=== PATIENT | male | born 1970 | race Caucasian/White ===

== ENCOUNTER 2018-05-30 10:16 | Emergency (ER) | payer OTHER ==
[2018-05-30] MEDS ORDERED: TENECTEPLASE 50 MG KIT (TNKase)(J3101) (10:17)
[2018-05-30] MEDS ORDERED: CLOPIDOGREL 300 MG TAB (PLAVIX) (10:17)
[2018-05-30] MEDS ORDERED: HEPARIN 25,000 UNITS/250 ML D5W BAG (100 UNITS/ML) (10:17)
[2018-05-30] MEDS ORDERED: HEPARIN SOD (PORCINE) 5000 UNITS/ML VIAL (10:17)
[2018-05-30] MEDS: HEPARIN SOD (PORCINE) 5000 UNITS/ML VIAL IV (10:39)
[2018-05-30] MEDS: TENECTEPLASE 50 MG KIT (TNKase)(J3101) IV (10:41)
[2018-05-30] MEDS: HEPARIN DRIP 25,000 UNITS in APPROPRIATE DILUENT 1 EA IV (10:42)
[2018-05-30] MEDS: NS 500 ML IV (10:43)
[2018-05-30] MEDS: CLOPIDOGREL 300 MG TAB (PLAVIX) PO (10:44)
[2018-05-30 11:07] LABS: BASO % 0.3 % (0.0-1.0); EOS % 0.6 % (0.0-3.0); HEMATOCRIT 45.7 % (42.0-52.0); HEMOGLOBIN 15.1 g/dl (13.5-17.5); IMMATURE GRANULOCYTE % 0.1 % (0-3.0); LYMPH # 3.7 10^3/uL (1.5-4.5); LYMPH % 54.5 % (24.0-44.0); MEAN CORPUSCULAR HEMOGLOBIN 29.8 pg (27.0-33.0); MEAN CORPUSCULAR VOLUME 90.3 fl (80.0-96.0); MONO # 0.5 10^3/uL (0.0-0.8); MONO % 7.1 % (0.0-5.0); NEUTROPHILS # 2.6 10^3/uL (1.8-7.7); NEUTROPHILS % 37.4 % (36.0-66.0); PLATELET COUNT, AUTOMATED 211 10^3/uL (150-450); RED BLOOD COUNT 5.06 10^6/uL (4.30-6.10); RED CELL DISTRIBUTION WIDTH 12.3 % (11.5-14.5); WHITE BLOOD COUNT 6.9 10^3/uL (4.0-10.0)
[2018-05-30 11:14] LABS: ANION GAP 4 MEQ/L (8-16); BLOOD UREA NITROGEN 15 MG/DL (7-18); CARBON DIOXIDE LEVEL 29 MEQ/L (21-32); CHLORIDE LEVEL 107 MEQ/L (98-107); CPK CREATINE PHOSPHOKINASE 215 U/L (39-308); CREATININE FOR GFR 1.16 MG/DL (0.70-1.30); GLOMERULAR FILTRATION RATE > 60.0 (>60); GLUCOSE, FASTING 138 MG/DL (70-100); MB/CK RELATIVE INDEX 0.93 (< OR =4); POTASSIUM SERUM 4.3 MEQ/L (3.5-5.1); SODIUM LEVEL 140 MEQ/L (136-145); TROPONIN I < 0.02 NG/ML (< 0.10)
[2018-05-30 11:15] LABS: INR 1.08; PROTHROMBIN TIME 14.2 SECONDS (12.1-14.4)
[2018-05-30 11:16] LABS: PARTIAL THROMBOPLASTIN TIME 34.9 SECONDS (25.4-37.6)
== END 2018-05-30 11:31 | disposition short-term general hospital (02) ==
LOC: M ED 10:16
DX: I21.19 ST elevation (STEMI) myocardial infarction involving other coronary artery of inferior wall (principal); I10 Essential (primary) hypertension
CPT/HCPCS: J3101

== ENCOUNTER → 2018-07-24 | Outpatient (CLI) | payer OTHER ==
[~2018-07-24] MED LIST: ISOVUE-370 76% 100ML VIAL (Q9967) As Ordered ONE
--- NOTE | 2018-07-24 20:58 | REP ---
CT CHEST WITH IV CONTRAST: 07/24/2018. Comparison: AP Portable chest 05/30/2018. Clinical history: Dyspnea. Technique: Bolus of 75 ml Isovue 370 given, scanning through the chest with coronal and sagittal reconstructions. Findings: Lung pena show no pleural effusion, pleural-based mass, calcified pleural plaque or acute infiltrate. There is calcified granuloma lateral basal segment abutting the posterior margin of the major fissure on image 74 in that left lower lobe. This is poorly depicted and not visible on the plain AP chest. I do not see other masses, nodules, acute infiltrate or pneumothorax. There is no pneumomediastinum. The heart is not enlarged. There is no pericardial thickening or effusion. Coronary stent visible anteriorly over the right heart. Some atherosclerotic calcifications are also noted in the coronaries. There is no cardiomegaly, specific chamber enlargement, pericardial thickening or effusion. The aorta is without aneurysm or dissection. The main, right and left pulmonary arteries and the mediastinum are without filling defects. No pathologic sized mediastinal, hilar, axillary or supraclavicular adenopathy. The bone windows show the sternum, manubrium, medial clavicles, small portions of the humeral heads, scapulae, ribs and thoracic spine all grossly intact. Upper abdomen shows that portion of liver and spleen included to be intact. Gallbladder contracted with the stomach filled with food. Adrenal glands are normal. There is no hiatal hernia. Upper poles kidneys intact. Abdominal aorta is grossly intact. Small bowel loops and colon visible in the upper abdomen unremarkable. Impression: 1. There is evidence of old granulomatous disease with a calcified granuloma lateral basal segment left lower lobe. 2. No infiltrate, effusion, calcified pleural plaque, parenchymal mass or other nodules. 3. Heart, mediastinal contours, aorta and central pulmonary arteries grossly intact. Bones unremarkable. Nothing in the visualized upper abdomen. Electronically Signed by Rob Marinelli MD 07/25/2018 01:18 P
== END ==
LOC: M RAD 16:54
PROVIDERS: ATTEND Internal Medicine Pulmonary Disease
DX: R91.8 Other nonspecific abnormal finding of lung field (principal); R06.09 Other forms of dyspnea
CPT/HCPCS: 71260; Q9967

== ENCOUNTER → 2018-07-28 | Outpatient (CLI) | payer OTHER ==
[~2018-07-28] MED LIST changes: +APAP325T4 PO; +ASPI81TA85 PO; +ATOR80TA59 PO; +BRIL90TA PO; +CENTCHW4 PO; -ISOVUE-370 76% 100ML VIAL (Q9967) As Ordered ONE; +LISI2.5T5 PO; +METHACHOLINE KIT (J7674) INH ONE; +METO37.5 PO; +MONT10TA2 PO; +NITR0.4S14 SL; +QUET1TAB7 PO
[2018-07-28 13:04] LABS: ABG BASE EXCESS -0.3 (-2.0-2.0); ABG HCO3 23.7 MEQ/L (22.0-26.0); ABG PARTIAL PRESSURE CO2 36.9 mmHg (35.0-45.0); ABG STANDARD HCO3 24.3 MEQ/L (22.0-26.0); ABG TOTAL CO2 24.8 MEQ/L (22.0-29.0); ABG pH (ARTERIAL) 7.425 UNITS (7.350-7.450)
--- NOTE | 2018-07-28 13:24 | PFTRPT ---
Height: 73.50 Inches Weight: 243.00 Lbs BSA: 2.35 Diagnosis: R06.00 DATE OF PROCEDURE: 07/28/2018 ORDERED BY: Dr. Vu Spirometry: Study of excellent technical quality. Forced vital capacity normal. FEV1 in proportion. Obstructive index is, therefore, normal. Flow Volume Loop: Expiratory limb of the flow volume loop is normal. Lung Volumes: Total lung capacity normal. Residual volume is borderline out of proportion. Diffusing Capacity: Diffusing capacity normal. Hemoglobin: Hemoglobin acceptable at 16.4. Airway Mechanics: Airway resistance and conductance are normal. IMPRESSION: Probably normal study. MTDD
--- NOTE | 2018-07-28 14:26 | PFTRPT ---
Height: 73.50 Inches Weight: 243.00 Lbs BSA: 2.35 Diagnosis: R06.00 DATE OF PROCEDURE: 07/28/2018 ORDERING PROVIDER: Dr. Vu INTERPRETATION: Study is of excellent technical quality. Under protocol, methacholine was administered. Even after a maximal dose of 25 mg or 188.875 CDUs, no provocation dose ever achieved. IMPRESSION: Negative methacholine challenge study. MTDD
== END ==
LOC: M CARPUL 12:26
PROVIDERS: ATTEND Internal Medicine Pulmonary Disease
DX: R06.00 Dyspnea, unspecified (principal)
CPT/HCPCS: 36415; 82803; 85018; 94010; 94070; 94726; 94729; J7674

== ENCOUNTER 2018-08-03 11:23 | Outpatient (RCR) | payer OTHER ==
[2018-08-03] MEDS ORDERED: QUET1TAB7 PO (13:28)
[2018-08-03] MEDS ORDERED: LISI2.5T5 PO (13:28)
[2018-08-03] MEDS ORDERED: NITR0.4S14 SL (13:28)
[2018-08-03] MEDS ORDERED: APAP325T4 PO (13:28)
[2018-08-03] MEDS ORDERED: MONT10TA2 PO (13:28)
[2018-08-03] MEDS ORDERED: CENTCHW4 PO (13:28)
[2018-08-03] MEDS ORDERED: ATOR80TA59 PO (13:28)
[2018-08-03] MEDS ORDERED: ASPI81TA85 PO (13:28)
[2018-08-03] MEDS ORDERED: METO37.5 PO (13:28)
[2018-08-03] MEDS ORDERED: BRIL90TA PO (13:28)
--- NOTE | 2018-08-03 14:28 | CARECAPL ---
Assessment Account #s: Initial Assessment General Diagnoses: Stent, NSTEMI Date of event: May 30, 2018 Physician: Mert Waldrop P Allergies: Coded Allergies: No Known Allergies (Unverified , 05/30/18) Date Entered Program: Aug 03, 2018 Risk strat for cardiac event: Low Exercise Date: Aug 03, 2018 Assessment: Initial Assessment Exercise Prescription Plan educate and increase endurance through exercise Modalities initiated: Treadmill (mets 2.15 RPE 3), Nustep (mets 2.6 RPE 2), Arm Aerometer (mets 1.6 RPE 2), Dumbells (will add), Recumbent Bike (will add) Frequency: 3 Duration (Minutes) 30-60 minutes total exercise a day. 15-20 work intervals in minutes. prn rest intervals in minutes. Functional Capacity Goal Sustained Metabolic Equivalent of a task (MET) goal of 4.0-4.5 for 15-20 minutes. Intensity: 3-Moderate Progression (METS) Increase by: 0.5 METS every: 3-5 sessions Angina with ex: No Target Heart Rate rest + 35-40 per beta ivonne therapy Resistance Training: Yes Weight (pounds): 1 Reps: 8-12 Hypertension: No Hypertension controlled with: Medication (metoprolol and lisinopril) Resting rest + 35-40 Peak Exercise BP 160/90 Meds metoprolol and lisinopril Medications Scheduled Aspirin (Aspir-81), 1 TAB PO DAILY, (Reported) Atorvastatin Calcium (Atorvastatin Calcium), 1 TAB PO DAILY, (Reported) Lisinopril (Lisinopril), 2.5 MG PO DAILY, (Reported) Metoprolol Tartrate (Metoprolol Tartrate), 12.5 MG PO BID, (Reported) Montelukast Sodium (Montelukast Sodium), 1 TAB PO DAILY, (Reported) Multivitamins (Centrum), 1 TAB PO DAILY, (Reported) Nitroglycerin (Nitroglycerin), 1 TAB SL ASDIRECTED, (Reported) Quetiapine Fumerate (Quetiapine Fumarate), 1 TAB PO QPM, (Reported) Ticagrelor Base (Brilinta), 90 MG PO BID, (Reported) Scheduled PRN Acetaminophen (Apap), 650 MG PO Q4-6HP PRN for pain or fever, (Reported) Target Goals Individual exercise Rx (1) BP 140/90 or 130/80 if DM or CKD (1) Aerobic active 30+min 5 days per week (1) Nutrition Date: Aug 03, 2018 Assessment: Initial Assessment Lipid- med/supplement lipitor Diabetes Diabetes: No Monitor Blood Sugar at home: No Weight Management Weight (lbs): 247.6 Height (inches): 74 Waist Circumference (Inches): 42 BMI: 31.71 Weight goal: 215 Special Diet: low salt, low-fat Vitamin/Supplements: Multivitamin Alcohol: special Alcohol Type: beer Alcohol Amount: 1-2 Diet Access Tool: Rate your plate Score: 42 Referral to Diabetes education: No Referral to lipid clinic: No Referral to weight mangement p: No Target goal LDL-C<100 if triglycerides are >200 Non-HDL-C should be <130 (1) LDL-C<70 for high risk patients (4) HbA1c<7% (1) BMI<25 Waist cir<40in M/<35in F (1) Education Date: Aug 03, 2018 Assessment: Initial Assessment Knowledge Test Score: 10 Family Support: Yes Tobacco use: No Quit: never smoked Intervention Education: CAD, Risk factors, med compliance, cardiac A&P, Angina S/S, Sexuality Target Goals Complete cessation of tobacco use (1). Psychosocial Date: Aug 03, 2018 Assessment: Initial Assessment Psych Test (Initial/Discharge) Tool Used: CESD Score: 40 Psychotropic medication seroquel for PTSD Education Education: Coping Techniques, S/S depression, Relaxation Techniques Target Goal Assess presence or absence of depression using a valid screening tool (1). Maximize coping skills (2). Positive support system (2). Patient/Program Goal Preventative Medication: Yes Aspirin, Yes Beta blockade, Yes RIANA Inhibitor, Yes Statin/OTR lipid Lowering, Yes Other (brillinta) Fall Risk Assess: No Provider Assessment Session Number: 1 Provider Assessment: Proceed with rehab Jodi Menjivar RN Aug 03, 2018 14:28
== END 2018-08-06 ==
LOC: M CR 11:23
PROVIDERS: ATTEND Internal Medicine Interventional Cardiology
DX: I21.4 Non-ST elevation (NSTEMI) myocardial infarction (principal)

== ENCOUNTER → 2018-08-05 | Outpatient (CLI) | payer OTHER ==
[~2018-08-05] MED LIST changes: -METHACHOLINE KIT (J7674) INH ONE
--- NOTE | 2018-08-08 08:32 | SLEEPCENT ---
DATE OF PROCEDURE: 08/05/2018 INTERPRETATION: Titration of polysomnography was done for determination of pressure therapy in this patient with moderate obstructive sleep apnea with an apnea/hypopneic index (AHI) of 21.9 who had ongoing sleep apnea syndrome symptoms consisting of snoring, witnessed apnea, gagging respirations, morning headaches, excessive daytime sleepiness, and non-refreshing sleep. He had been started on CPAP at 6 cm of water pressure while in [place]. On returning to the [facility], his machine was not compatible with our electrical system and he has been untreated since his return. A total of 8 hours and 36 minutes of data was reviewed for the entire titration with 345 minutes of sleep identified. Sleep latency was 23.5 minutes and N3 latency was 114.9 minutes. No rapid eye movement (REM) sleep was identified. Sleep efficiency was decreased at 66.8%. EKG showed sinus bradycardia with an average heart rate of 58 beats per minute. No epileptiform discharge observed. The patient had been fit with a Lujan-Paykel Simplus full-face mask of small size, 6 cm of water pressure was applied to the circuit and the lights were dimmed. CPAP started at 6 cm of water pressure was taken to a high of 8 cm of water pressure, which appeared optimum although the study was limited as no supine nor REM sleep was observed. On this pressure, his apnea/hypopneic index (AHI) was 0, his respiratory arousal index (HERRERA) was 2.8. Oxygen saturation genesis was in the 90 percentile. No significant periodic limb movements. IMPRESSION: Obstructive sleep apnea, moderate, reasonably palliated on CPAP at 8 cm of water pressure in a study limited by no supine sleep and no REM sleep being observed. RECOMMENDATION: Recommend the patient continued with CPAP therapy at the above pressure via a small Lujan-Paykel Simplus full-face mask or mask of his preference. Clinical correlation will be necessary to ensure eradication of symptoms. [facility]
== END ==
LOC: M SLEEP 19:40
PROVIDERS: ATTEND Internal Medicine Pulmonary Disease
DX: G47.33 Obstructive sleep apnea (adult) (pediatric) (principal)

== ENCOUNTER 2018-08-31 09:51 | Outpatient (RCR) | payer OTHER ==
--- NOTE | 2018-08-26 08:41 | CARECAPL ---
Assessment Account #s: Re-Assessment I General Diagnoses: Stent, NSTEMI Date of event: May 30, 2018 Physician: Mert Waldrop P Allergies: Coded Allergies: No Known Allergies (Unverified , 05/30/18) Date Entered Program: Aug 03, 2018 Risk strat for cardiac event: Low Exercise Date: Aug 10, 2018 Assessment: Re-Assessment I Exercise Prescription Modalities initiated: Treadmill (mets 2.69 RPE 2.5), Nustep (mets 2.6 RPE 2.5), Arm Aerometer (mets 2.4 RPE 2), Dumbells (1lb RPE 3), Recumbent Bike (mets 3.2 RPE 2.5) Frequency: 2-3 Duration (Minutes) minutes total exercise a day. work intervals in minutes. rest intervals in minutes. Functional Capacity Goal Sustained Metabolic Equivalent of a task (MET) goal of for minutes. Intensity: 3-Moderate Progression (METS) Increase by: METS every: sessions Medications Scheduled Aspirin (Aspir-81), 1 TAB PO DAILY, (Reported) Atorvastatin Calcium (Atorvastatin Calcium), 1 TAB PO DAILY, (Reported) Lisinopril (Lisinopril), 2.5 MG PO DAILY, (Reported) Metoprolol Tartrate (Metoprolol Tartrate), 12.5 MG PO BID, (Reported) Montelukast Sodium (Montelukast Sodium), 1 TAB PO DAILY, (Reported) Multivitamins (Centrum), 1 TAB PO DAILY, (Reported) Nitroglycerin (Nitroglycerin), 1 TAB SL ASDIRECTED, (Reported) Quetiapine Fumerate (Quetiapine Fumarate), 1 TAB PO QPM, (Reported) Ticagrelor Base (Brilinta), 90 MG PO BID, (Reported) Scheduled PRN Acetaminophen (Apap), 650 MG PO Q4-6HP PRN for pain or fever, (Reported) Current BP 118/84 Med Change: No Target Goals Individual exercise Rx (1) BP 140/90 or 130/80 if DM or CKD (1) Aerobic active 30+min 5 days per week (1) Nutrition Date: Aug 26, 2018 Assessment: Re-Assessment I Med Change: No Medication Change: No Current Weight (pounds): 245 Target goal LDL-C<100 if triglycerides are >200 Non-HDL-C should be <130 (1) LDL-C<70 for high risk patients (4) HbA1c<7% (1) BMI<25 Waist cir<40in M/<35in F (1) Education Date: Aug 26, 2018 Assessment: Re-Assessment I Learning Barriers: ready Target Goals Complete cessation of tobacco use (1). Psychosocial Date: Aug 26, 2018 Assessment: Re-Assessment I Med Change: No Education Education: Coping Techniques, S/S depression, Relaxation Techniques Target Goal Assess presence or absence of depression using a valid screening tool (1). Maximize coping skills (2). Positive support system (2). Patient/Program Goal Preventative Medication: Yes Aspirin, Yes Beta blockade, Yes RIANA Inhibitor, Yes Statin/OTR lipid Lowering Fall Risk Assess: No Provider Assessment Session Number: 2 Provider Assessment: Proceed with rehab Jdoi Menjivar RN Aug 26, 2018 08:41
== END 2018-09-03 ==
LOC: M CR 09:51
PROVIDERS: ATTEND Internal Medicine Interventional Cardiology
DX: I21.4 Non-ST elevation (NSTEMI) myocardial infarction (principal)

== ENCOUNTER 2018-09-23 14:06 | Outpatient (RCR) | payer OTHER ==
--- NOTE | 2018-09-23 11:02 | CARECAPL ---
Assessment Account #s: Re-Assessment II General Diagnoses: Stent, NSTEMI Date of event: May 30, 2018 Physician: Mert Waldrop P Allergies: Coded Allergies: No Known Allergies (Unverified , 05/30/18) Date Entered Program: Aug 03, 2018 Risk strat for cardiac event: Low Exercise Date: Sep 23, 2018 Exercise Prescription Modalities initiated: Treadmill, Nustep, Arm Aerometer, Dumbells, Recumbent Bike Frequency: 2 Duration (Minutes) minutes total exercise a day. work intervals in minutes. rest intervals in minutes. Functional Capacity Goal Sustained Metabolic Equivalent of a task (MET) goal of for minutes. Intensity: 2-Slight Progression (METS) Increase by: METS every: sessions Angina with ex: No Resistance Training: Yes Weight (pounds): 6 Reps: 6-8 Medications Scheduled Aspirin (Aspir-81), 1 TAB PO DAILY, (Reported) Atorvastatin Calcium (Atorvastatin Calcium), 1 TAB PO DAILY, (Reported) Lisinopril (Lisinopril), 2.5 MG PO DAILY, (Reported) Metoprolol Tartrate (Metoprolol Tartrate), 12.5 MG PO BID, (Reported) Montelukast Sodium (Montelukast Sodium), 1 TAB PO DAILY, (Reported) Multivitamins (Centrum), 1 TAB PO DAILY, (Reported) Nitroglycerin (Nitroglycerin), 1 TAB SL ASDIRECTED, (Reported) Quetiapine Fumerate (Quetiapine Fumarate), 1 TAB PO QPM, (Reported) Ticagrelor Base (Brilinta), 90 MG PO BID, (Reported) Scheduled PRN Acetaminophen (Apap), 650 MG PO Q4-6HP PRN for pain or fever, (Reported) Current BP 144/74 Med Change: Yes Target Goals Individual exercise Rx (1) BP 140/90 or 130/80 if DM or CKD (1) Aerobic active 30+min 5 days per week (1) Nutrition Date: Sep 23, 2018 Assessment: Re-Assessment II Diabetes Diabetes: No Medication Change: No Current Weight (pounds): 242 Intervention Nurse/patient discussion: Yes Education Eating Healthy Target goal LDL-C<100 if triglycerides are >200 Non-HDL-C should be <130 (1) LDL-C<70 for high risk patients (4) HbA1c<7% (1) BMI<25 Waist cir<40in M/<35in F (1) Education Date: Sep 23, 2018 Assessment: Re-Assessment II Intervention Attended education classes: Yes Education: CAD, Risk factors, med compliance, cardiac A&P, Angina S/S, Sexuality Target Goals Complete cessation of tobacco use (1). Psychosocial Date: Sep 23, 2018 Assessment: Re-Assessment II Stress Management Class: Yes Uses Stress Management Skills: Yes Education Education: Coping Techniques, S/S depression, Relaxation Techniques Target Goal Assess presence or absence of depression using a valid screening tool (1). Maximize coping skills (2). Positive support system (2). Provider Assessment Session Number: 7 Provider Assessment: No changes Madyson Ramos RN Sep 23, 2018 11:02
== END 2018-10-04 ==
LOC: M CR 14:06
PROVIDERS: ATTEND Internal Medicine Interventional Cardiology
DX: I21.4 Non-ST elevation (NSTEMI) myocardial infarction (principal)

== ENCOUNTER 2018-10-21 14:40 | Outpatient (RCR) | payer OTHER ==
--- NOTE | 2018-10-21 09:11 | CARECAPL ---
Assessment Account #s: Re-Assessment II (REASSESSMENT III) General Diagnoses: Stent, NSTEMI Date of event: May 30, 2018 Physician: Mert Waldrop P Allergies: Coded Allergies: No Known Allergies (Unverified , 05/30/18) Date Entered Program: Aug 03, 2018 Risk strat for cardiac event: Low Exercise Date: Oct 21, 2018 Assessment: Re-Assessment II (REASSESSMENT III) Exercise Prescription Plan TO EDUCATE AND BUILD ENDURANCE THROUGH MONITORED EXERCISE Modalities initiated: Treadmill (METS=4.12/RPE=2), Nustep (METS=3.2/RPE=3), Arm Aerometer (METS=5.8/RRPE=3), Dumbells (8#/RPE=2.5), Recumbent Bike (METS=4.3/RPE=3) Frequency: 3 Duration (Minutes) 30-60 minutes total exercise a day. 12-15 work intervals in minutes. 5 MIN PRN rest intervals in minutes. Functional Capacity Goal Sustained Metabolic Equivalent of a task (MET) goal of 4.0-4.5 for 15-20 minutes. Intensity: 3-Moderate Progression (METS) Increase by: 0.5 METS every: 5 sessions TOLERATED Angina with ex: No Target Heart Rate +35-40 BETA NASREEN THERAPY Resistance Training: Yes Weight (pounds): 8 Reps: 12-15 Hypertension: Yes Hypertension controlled with: Medication Resting 142/90 Peak Exercise BP 160/100 Medications Scheduled Aspirin (Aspir 81), 1 TAB PO DAILY, (Reported) Atorvastatin Calcium (Atorvastatin Calcium), 1 TAB PO DAILY, (Reported) Lisinopril (Lisinopril), 2.5 MG PO DAILY, (Reported) Metoprolol Tartrate (Metoprolol Tartrate), 12.5 MG PO BID, (Reported) Montelukast Sodium (Montelukast Sodium), 1 TAB PO DAILY, (Reported) Multivit-Min/Iron/Folic/Vit K1 (Centrum Chewables Adults Tab), 1 TAB PO DAILY, (Reported) Nitroglycerin (Nitroglycerin), 1 TAB SL ASDIRECTED, (Reported) Quetiapine Fumarate (Quetiapine Fumarate), 1 TAB PO QPM, (Reported) Ticagrelor Base (Brilinta), 90 MG PO BID, (Reported) Scheduled PRN Acetaminophen (Acetaminophen), 650 MG PO Q4-6HP PRN for pain or fever, (Re ported) Current BP 120/80 Med Change: No Intervention Home exercise: Type (WALKING,STATIONARY BIKE,HAND WEIGHTS), Frequency (3-5 TIMES PER WEEK), Duration (30-60 MINUTES) Resistance Training: Yes Education: Self pulse, Ex safety, S/S to report, Low NA diet, BP medication, RPE Scale, Equipment orientation, warm up/cool down, Understand BP, Physical Active Target Goals Individual exercise Rx (1) BP 140/90 or 130/80 if DM or CKD (1) Aerobic active 30+min 5 days per week (1) Nutrition Date: Oct 21, 2018 Assessment: Re-Assessment II (REASSESSMENT III) Lipid- med/supplement ATORVASTATIN Med Change: No Diabetes Diabetes: No Medication Change: No Weight Management Weight (lbs): 239.8 Special Diet: low salt, low-fat Vitamin/Supplements: Vitamin D Current Weight (pounds): 239.8 Intervention [employer] Commanding Officer Consult: No Nurse/patient discussion: Yes Referral to Diabetes education: No Referral to lipid clinic: No Referral to weight mangement p: No Education Eating Healthy Target goal LDL-C<100 if triglycerides are >200 Non-HDL-C should be <130 (1) LDL-C<70 for high risk patients (4) HbA1c<7% (1) BMI<25 Waist cir<40in M/<35in F (1) Education Date: Oct 21, 2018 Assessment: Re-Assessment II (REASSESSMENT III) Learning Barriers: ready Family Support: Yes Tobacco use: No Tobacco Use Smokeless tobacco: No Intervention Referral to smoking cessation: No Individual education and couns: No Tobacco Adjunct: No Education class schedule given: No Attended education classes: No Education: CAD, Risk factors, med compliance, cardiac A&P, Angina S/S, Sexuali ty Target Goals Complete cessation of tobacco use (1). Psychosocial Date: Oct 21, 2018 Assessment: Re-Assessment II (REASSESSMENT III) Intervention Physician Consult: No Physician Referral: No Med Change: No Stress Management Class: No Uses Stress Management Skills: Yes Education Education: Coping Techniques, S/S depression, Relaxation Techniques Target Goal Assess presence or absence of depression using a valid screening tool (1). Maximize coping skills (2). Positive support system (2). Patient/Program Goal Preventative Medication: Yes Aspirin, Yes Beta blockade, Yes Statin/OTR lipid Lowering Fall Risk Assess: Yes (NOT A FALL RISK) Provider Assessment Session Number: 10 Provider Assessment: Proceed with rehab Shahab Ruiz RN Oct 21, 2018 09:11
[~2018-10-21 14:40] MED LIST changes: +LISI-1046 PO; -LISI2.5T5 PO
== END 2018-11-03 ==
LOC: M CR 14:40
PROVIDERS: ATTEND Internal Medicine Interventional Cardiology
DX: I21.4 Non-ST elevation (NSTEMI) myocardial infarction (principal)

== ENCOUNTER 2018-11-11 09:36 | Outpatient (RCR) | payer OTHER ==
--- NOTE | 2018-11-16 11:28 | CARECAPL ---
Assessment Account #s: Re-Assessment II (reassessment IV) General Diagnoses: Stent, NSTEMI Date of event: May 30, 2018 Allergies: Coded Allergies: No Known Allergies (Unverified , 05/30/18) Date Entered Program: Jul 30, 2018 Risk strat for cardiac event: Low Exercise Date: November 16, 2018 Assessment: Re-Assessment II (reassessment IV) Exercise Prescription Plan to educate about cardiac disease and risk factors and to provide a monitored exercise program to build endurance and strength Modalities initiated: Treadmill (3.0/3.0 mts 4.54 rpe 2 15 minutes), Nustep (L7 MTS 6.6 RPE 4.5 15 minutes), Arm Aerometer (6.0 Mts 5.66 Rpe 2.5 10 minutes), Dumbells, Recumbent Bike (R5 mts 4.0 rpe 3 10 minutes) Frequency: 2 Duration (Minutes) 30-60 minutes total exercise a day. 8-15 work intervals in minutes. as needed rest intervals in minutes. Functional Capacity Goal Sustained Metabolic Equivalent of a task (MET) goal of for minutes. Intensity: 4-Quite a bit Progression (METS) Increase by: .5 METS every: 2-3 sessions Angina with ex: No Target Heart Rate r+35-40 betablocker therapy Resistance Training: Yes Weight (pounds): 8 Reps: 8-12 Medications Scheduled Aspirin (Aspir 81), 1 TAB PO DAILY, (Reported) Atorvastatin Calcium (Atorvastatin Calcium), 1 TAB PO DAILY, (Reported) Lisinopril (Lisinopril), 2.5 MG PO DAILY, (Reported) Metoprolol Tartrate (Metoprolol Tartrate), 12.5 MG PO BID, (Reported) Montelukast Sodium (Montelukast Sodium), 1 TAB PO DAILY, (Reported) Multivit-Min/Iron/Folic/Vit K1 (Centrum Chewables Adults Tab), 1 TAB PO DAILY, (Reported) Nitroglycerin (Nitroglycerin), 1 TAB SL ASDIRECTED, (Reported) Quetiapine Fumarate (Quetiapine Fumarate), 1 TAB PO QPM, (Reported) Ticagrelor Base (Brilinta), 90 MG PO BID, (Reported) Scheduled PRN Acetaminophen (Acetaminophen), 650 MG PO Q4-6HP PRN for pain or fever, (Reported) Current BP 118/80 Med Change: No Intervention Home exercise: Type (walking, hand weights, stationary bike, join gym) Resistance Training: Yes Education: Self pulse, Ex safety, S/S to report, Low NA diet, BP medication, RPE Scale, Equipment orientation, warm up/cool down, Understand BP, Physical Active Education Goals Met: No (progressing) Target Goals Individual exercise Rx (1) BP 140/90 or 130/80 if DM or CKD (1) Aerobic active 30+min 5 days per week (1) Nutrition Date: November 16, 2018 Assessment: Re-Assessment II (reassessment IV) Med Change: No Diabetes Diabetes: No Current Weight (pounds): 239.8 Intervention Network Analyst Consult: Yes Nurse/patient discussion: Yes Dietary Goals better choices and smaller portions Diet Class: Yes Referral to Diabetes education: No Referral to lipid clinic: No Referral to weight mangement p: No Education Eating Healthy Education Goals Met: No (progressing) Target goal LDL-C<100 if triglycerides are >200 Non-HDL-C should be <130 (1) LDL-C<70 for high risk patients (4) HbA1c<7% (1) BMI<25 Waist cir<40in M/<35in F (1) Education Date: November 16, 2018 Assessment: Re-Assessment II (reassessment IV) Tobacco use: No Tobacco Use Smokeless tobacco: No Intervention Referral to smoking cessation: No Individual education and couns: No Tobacco Adjunct: No Education class schedule given: Yes Attended education classes: Yes Education: CAD, Risk factors, med compliance, cardiac A&P, Angina S/S, Sexuality Education Goals Met: No (continue to progress) Target Goals Complete cessation of tobacco use (1). Psychosocial Date: November 16, 2018 Assessment: Re-Assessment II (reassessment IV) Stress Management Class: Yes Uses Stress Management Skills: Yes Education Education: Coping Techniques, S/S depression, Relaxation Techniques, Other (has PTSD will be attending a program in the near future) Education Goals Met: No (progressing) Target Goal Assess presence or absence of depression using a valid screening tool (1). Maximize coping skills (2). Positive support system (2). Provider Assessment Session Number: 14 Provider Assessment: No changes Madyson Ramos RN November 16, 2018 11:28
== END 2018-12-04 ==
LOC: M CR 09:36
PROVIDERS: ATTEND Internal Medicine Interventional Cardiology
DX: Z51.89 Encounter for other specified aftercare (principal)

== ENCOUNTER → 2019-02-03 | Outpatient (RCR) | payer OTHER ==
--- NOTE | 2019-01-14 16:24 | CARECAPL ---
Assessment Account #s: Re-Assessment II (REASSESSMENT ) General Diagnoses: Stent, NSTEMI Date of event: May 30, 2018 Physician: Rafael Espinal Allergies: Coded Allergies: No Known Allergies (Unverified , 05/30/18) Date Entered Program: Jul 30, 2018 Risk strat for cardiac event: Low Exercise Date: Jan 14, 2019 (PATIENT ATTENDING TRAINING FOR [employer], PLANS TO RETURN WHEN FINISHED) Assessment: Re-Assessment II (REASSESSMENT ) Exercise Prescription Plan TO EDUCATE AND BUILD ENDURANCE THROUGH MONITORED EXERCISE Modalities initiated: Treadmill (METS=4.54/RPE=2), Nustep (METS=6.6/RPE=4.5), Arm Aerometer (METS=5.66/RPE=2.5), Dumbells (8#/RPE=1.5), Recumbent Bike (METS=4.0/RPE=3) Frequency: 3 Duration (Minutes) 30-60 minutes total exercise a day. 12-15 work intervals in minutes. 5 MIN rest intervals in minutes. Functional Capacity Goal Sustained Metabolic Equivalent of a task (MET) goal of 4.75-6.0 for 15-20 minutes. Intensity: 3-Moderate Progression (METS) Increase by: METS every: sessions Angina with ex: No Target Heart Rate REST +35-40 Resistance Training: Yes Weight (pounds): 8 Reps: 12-15 Hypertension: Yes Hypertension controlled with: Medication Resting 118/80 Peak Exercise BP 140/80 Medications Scheduled Aspirin (Aspir 81), 1 TAB PO DAILY, (Reported) Atorvastatin Calcium (Atorvastatin Calcium), 1 TAB PO DAILY, (Reported) Lisinopril (Lisinopril), 2.5 MG PO DAILY, (Reported) Metoprolol Tartrate (Metoprolol Tartrate), 12.5 MG PO BID, (Reported) Montelukast Sodium (Montelukast Sodium), 1 TAB PO DAILY, (Reported) Multivit-Min/Iron/Folic/Vit K1 (Centrum Chewables Adults Tab), 1 TAB PO DAILY, (Reported) Nitroglycerin (Nitroglycerin), 1 TAB SL ASDIRECTED, (Reported) Quetiapine Fumarate (Quetiapine Fumarate), 1 TAB PO QPM, (Reported) Ticagrelor Base (Brilinta), 90 MG PO BID, (Reported) Scheduled PRN Acetaminophen (Acetaminophen), 650 MG PO Q4-6HP PRN for pain or fever, (Reported) Current BP 118/82 Med Change: No Intervention Resistance Training: Yes Education: Self pulse, Ex safety, S/S to report, Low NA diet, BP medication, RPE Scale, Equipment orientation, warm up/cool down, Understand BP, Physical Active Target Goals Individual exercise Rx (1) BP 140/90 or 130/80 if DM or CKD (1) Aerobic active 30+min 5 days per week (1) Nutrition Date: Jan 14, 2019 Assessment: Re-Assessment II (REASSESSMENT ) Lipid- med/supplement ATORVASTATIN Med Change: No Diabetes Diabetes: No Monitor Blood Sugar at home: No Medication Change: No Blood sugar in range: No Weight Management Weight (lbs): 239.8 Special Diet: low salt, low-fat Vitamin/Supplements: Multivitamin Current Weight (pounds): 239.8 Intervention Pulp Plant Supervisor Consult: No Nurse/patient discussion: Yes Dietary Goals TO MAKE HEART HEALTHY CHOICES Diet Class: Yes (WILL SEE ORTHOPEDICALLY IMPAIRED TEACHER WHILE IN PROGRAM) Referral to Diabetes education: No Referral to lipid clinic: No Referral to weight mangement p: No Education Eating Healthy Target goal LDL-C<100 if triglycerides are >200 Non-HDL-C should be <130 (1) LDL-C<70 for high risk patients (4) HbA1c<7% (1) BMI<25 Waist cir<40in M/<35in F (1) Education Date: Jan 14, 2019 Assessment: Re-Assessment II (REASSESSMENT ) Learning Barriers: ready Family Support: Yes Tobacco use: No Tobacco Use Smokeless tobacco: No Intervention Referral to smoking cessation: No Individual education and couns: No Tobacco Adjunct: No Education class schedule given: No Attended education classes: No Education: tobacco triggers, CAD, Risk factors, med compliance, cardiac A&P, Angina S/S, Sexuality Target Goals Complete cessation of tobacco use (1). Psychosocial Date: Jan 14, 2019 Assessment: Re-Assessment II (REASSESSMENT ) Intervention Physician Consult: No Physician Referral: No Med Change: No Stress Management Class: No Uses Stress Management Skills: Yes Education Education: Coping Techniques, S/S depression, Relaxation Techniques Target Goal Assess presence or absence of depression using a valid screening tool (1). Maximize coping skills (2). Positive support system (2). Patient/Program Goal Preventative Medication: Yes Aspirin, Yes Beta blockade, Yes Statin/OTR lipid Lowering Fall Risk Assess: Yes (NOT A FALL RISK) Provider Assessment Session Number: 14 Provider Assessment: Proceed with rehab (PATIENT IS ATTENDING MANDATORY TRAINING FOR PTSD, PLANS TO RETURN ONCE COMPLETED) Shahab Ruiz RN Jan 14, 2019 16:24
[~2019-02-03] MED LIST changes: +LOSA100T50 PO; +OMEP-218 PO; +PRAZ2CAP PO; +WELLTAB38 PO
== END ==
LOC: M CR 01-25 12:38
PROVIDERS: ATTEND Internal Medicine Interventional Cardiology
DX: I21.4 Non-ST elevation (NSTEMI) myocardial infarction (principal)

== ENCOUNTER 2019-03-03 11:17 | Outpatient (RCR) | payer OTHER ==
--- NOTE | 2019-02-10 10:04 | CARECAPL ---
Assessment Account #s: Re-Assessment II (VII) General Diagnoses: Stent, NSTEMI Date of event: May 30, 2018 Physician: Rafael Espinal Allergies: Coded Allergies: No Known Allergies (Unverified , 05/30/18) Date Entered Program: Jul 30, 2018 Risk strat for cardiac event: Low Exercise Date: Feb 10, 2019 Assessment: Re-Assessment II (VII) Exercise Prescription Modalities initiated: Treadmill (2.7/1.5 mts 3.44 rpe 2 10 minutes), Nustep (level 6 mts 3.8 rpe 2 15 minutes), Arm Aerometer (level 2.5 mts 2.8 rpe 3), Dumbells, Recumbent Bike (level mts 3.2 rpe 3.5 10 minutes) Frequency: 2-3 Duration (Minutes) minutes total exercise a day. work intervals in minutes. rest intervals in minutes. Functional Capacity Goal Sustained Metabolic Equivalent of a task (MET) goal of 5-6.0 for 15-20 minutes. Progression (METS) Increase by: METS every: sessions Resistance Training: Yes Weight (pounds): 4 Reps: 8-12 Medications Scheduled Aspirin (Aspir 81), 1 TAB PO DAILY, (Reported) Atorvastatin Calcium (Atorvastatin Calcium), 1 TAB PO DAILY, (Reported) Bupropion HCl (Wellbutrin Xl), 150 MG PO QAM, (Reported) Losartan Potassium (Losartan Potassium), 100 MG PO DAILY, (Reported) Metoprolol Tartrate (Metoprolol Tartrate), 12.5 MG PO BID, (Reported) Montelukast Sodium (Montelukast Sodium), 1 TAB PO DAILY, (Reported) Multivit-Min/Iron/Folic/Vit K1 (Centrum Chewables Adults Tab), 1 TAB PO DAILY, (Reported) Nitroglycerin (Nitroglycerin), 1 TAB SL ASDIRECTED, (Reported) Omeprazole (Omeprazole), 20 MG PO DAILY, (Reported) Prazosin Hcl (Prazosin HCl), 1 CAP PO QHS, (Reported) Ticagrelor Base (Brilinta), 90 MG PO BID, (Reported) Scheduled PRN Acetaminophen (Acetaminophen), 650 MG PO Q4-6HP PRN for pain or fever, (Reported) Current BP 128/76 Med Change: No Intervention Home exercise: Type (walking, join local gym, hand weights), Frequency (5-7 times a week), Duration (30-60 minutes) Resistance Training: Yes Education: Self pulse (locations of pulse, how to time it), Ex safety (staying hydrated, not using cell phone, ), S/S to report (lightheadedness, increase pain, abn shortness breath), Low NA diet (education sheets given with suggestions of what to stay away from, no salt shaker, processed food. 1500- 2000mg /day), BP medication (taking medication), RPE Scale (how had was the exercise), Equipment orientation (review of each piece of equipment, use, benefit), warm up/cool down (wall charts, importance to do d/t reduce injury), Understand BP (baseline), Physical Active (HEP) Education Goals Met: Yes Target Goals Individual exercise Rx (1) BP 140/90 or 130/80 if DM or CKD (1) Aerobic active 30+min 5 days per week (1) Nutrition Date: Feb 10, 2019 Assessment: Re-Assessment II (VII) Med Change: No Diabetes Diabetes: No Current Weight (pounds): 255 Weight Goal 230 Intervention Nurse/patient discussion: Yes Dietary Goals smaller portion and better choices Diet Class: Yes Referral to Diabetes education: No Referral to lipid clinic: No Referral to weight mangement p: No Education Eating Healthy Education Goals Met: No (progressing toward goals. Has already lost approx 10# since return to cardiac rehab) Target goal LDL-C<100 if triglycerides are >200 Non-HDL-C should be <130 (1) LDL-C<70 for high risk patients (4) HbA1c<7% (1) BMI<25 Waist cir<40in M/<35in F (1) Education Date: Feb 10, 2019 Assessment: Re-Assessment II (VII) Family Support: Yes Tobacco use: No Intervention Attended education classes: Yes Education: CAD, Risk factors (high BP, importance of reducing stress, healthy diet, and exercise), med compliance (taking meds 100% of the time), Angina S/S (reporting CP, SOB) Education Goals Met: No (progressing toward goals) Target Goals Complete cessation of tobacco use (1). Psychosocial Date: Feb 10, 2019 Assessment: Re-Assessment II (VII) Stress Management Class: Yes (Just finished Stress reducing program through [employer] (PTSD)) Education Education: Coping Techniques, S/S depression, Relaxation Techniques Education Goals Met: No (progressing toward goals) Target Goal Assess presence or absence of depression using a valid screening tool (1). Maximize coping skills (2). Positive support system (2). Provider Assessment Session Number: 18 Provider Assessment: No changes Madyson Ramos RN Feb 10, 2019 10:04
== END 2019-03-06 ==
LOC: M CR 11:17
PROVIDERS: ATTEND Internal Medicine Interventional Cardiology
DX: I21.4 Non-ST elevation (NSTEMI) myocardial infarction (principal)

== ENCOUNTER 2019-03-29 10:25 | Outpatient (RCR) | payer OTHER ==
--- NOTE | 2019-03-11 08:07 | CARECAPL ---
Assessment Account #s: Initial Assessment, Re-Assessment II (VIII) General Diagnoses: Stent, NSTEMI Date of event: May 30, 2018 Allergies: Coded Allergies: No Known Allergies (Unverified , 05/30/18) Date Entered Program: Jul 30, 2018 Risk strat for cardiac event: Low Exercise Date: Mar 10, 2019 Assessment: Re-Assessment II (VIII) Exercise Prescription Modalities initiated: Treadmill (speed 3.4 incline 3.0 for 15 minutes mets 5.01 RPE 4), Nustep (resistance 8 for 15 minutes mets 3.8 RPE 3.5), Arm Aerometer (resistance 4 for 10 minutes mets 3.1 RPE 3.5), Dumbells (8lbs 2 sets 15 reps RPE 2.5), Recumbent Bike (Resistance 3 for 10 minutes mets 5.1 RPE 3) Frequency: 2-3 Duration (Minutes) 30 - 60 minutes total exercise a day. 15 - 20 work intervals in minutes. PRN rest intervals in minutes. Functional Capacity Goal Sustained Metabolic Equivalent of a task (MET) goal of 5.0-6.0 for 15-20 minutes. Intensity: 3-Moderate Progression (METS) Increase by: 0.5 METS every: 3-5 sessions Angina with ex: No Target Heart Rate rest + 35-40 Resistance Training: Yes Weight (pounds): 8 Reps: 12-15 Hypertension: Yes Hypertension controlled with: Medication (metoprolol and lisinopril) Resting 110/82 Peak Exercise BP 150/96 Meds lopressor and lisinopril Medications Scheduled Aspirin (Aspir 81), 1 TAB PO DAILY, (Reported) Atorvastatin Calcium (Atorvastatin Calcium), 1 TAB PO DAILY, (Reported) Bupropion HCl (Wellbutrin Xl), 150 MG PO QAM, (Reported) Losartan Potassium (Losartan Potassium), 100 MG PO DAILY, (Reported) Metoprolol Tartrate (Metoprolol Tartrate), 12.5 MG PO BID, (Reported) Montelukast Sodium (Montelukast Sodium), 1 TAB PO DAILY, (Reported) Multivit-Min/Iron/Folic/Vit K1 (Centrum Chewables Adults Tab), 1 TAB PO DAILY, (Reported) Nitroglycerin (Nitroglycerin), 1 TAB SL ASDIRECTED, (Reported) Omeprazole (Omeprazole), 20 MG PO DAILY, (Reported) Prazosin Hcl (Prazosin HCl), 1 CAP PO QHS, (Reported) Ticagrelor Base (Brilinta), 90 MG PO BID, (Reported) Scheduled PRN Acetaminophen (Acetaminophen), 650 MG PO Q4-6HP PRN for pain or fever, (Reported) Current BP 110/82 Med Change: No Education Goals Met: Yes (documented on previous ITP's) Target Goals Individual exercise Rx (1) BP 140/90 or 130/80 if DM or CKD (1) Aerobic active 30+min 5 days per week (1) Nutrition Date: Mar 11, 2019 Assessment: Re-Assessment II (VIII) Med Change: No Diabetes Diabetes: No Monitor Blood Sugar at home: No Medication Change: No Current Weight (pounds): 246.2 Weight Goal 215 Intervention Lumber Carrier Operator Consult: No Nurse/patient discussion: No Diet Class: Yes Referral to Diabetes education: No Referral to lipid clinic: No Education Goals Met: Yes (documented on previous ITP's) Target goal LDL-C<100 if triglycerides are >200 Non-HDL-C should be <130 (1) LDL-C<70 for high risk patients (4) HbA1c<7% (1) BMI<25 Waist cir<40in M/<35in F (1) Education Date: Mar 11, 2019 Assessment: Re-Assessment II (VIII) Tobacco Use Smokeless tobacco: No Intervention Referral to smoking cessation: No Individual education and couns: No Tobacco Adjunct: No Education class schedule given: No Attended education classes: No Education Goals Met: Yes (documented on previous ITP's) Target Goals Complete cessation of tobacco use (1). Psychosocial Date: Mar 11, 2019 Assessment: Re-Assessment II (VIII) Stages of change: Preperation Intervention Physician Consult: No Physician Referral: No Med Change: Yes (patient attended inpatient PTSD was placed on Wellbutrin XL and D/C'd seroquel) Stress Management Class: Yes Uses Stress Management Skills: Yes Education Goals Met: Yes (documented on previous ITP's) Target Goal Assess presence or absence of depression using a valid screening tool (1). Maximize coping skills (2). Positive support system (2). Patient/Program Goal Preventative Medication: Yes Aspirin, Yes Beta blockade, Yes RIANA Inhibitor, Yes Statin/OTR lipid Lowering, Yes Other (brilinta) Fall Risk Assess: Yes (no a fall risk) Provider Assessment Session Number: 24 Provider Assessment: Proceed with rehab (Patient progressing very well with cardiac rehab) Jodi Menjivar RN Mar 11, 2019 08:07
[~2019-03-29 10:25] MED LIST changes: +COZA1TAB PO; +LIPI80TA PO; +PROT1TAB2 PO; +VENTAER INH; +ZETI10TA16 PO
--- NOTE | 2019-03-29 11:11 | CARECAPL ---
Assessment Account #s: Discharge General Diagnoses: NSTEMI Date of event: May 30, 2018 Physician: Rafael Espinal Allergies: Coded Allergies: No Known Allergies (Unverified , 05/30/18) Date Entered Program: Jul 30, 2018 Risk strat for cardiac event: Low Exercise Date: Mar 29, 2019 Assessment: Followup/Discharge Stages of change: maintenance Exercise Prescription Modalities initiated: Treadmill (3.0/3.0 mts 4.54 rpe 2.5 15 minutes), Nustep (L8 mts 4.5 rpe 3.5 15 minutes), Arm Aerometer (4.0 mts 3.1 rpe 3 10 minutes), Dumbells, Recumbent Bike (R5 mts 4.9 rpe 3.5 15 minutes) Duration (Minutes) 30 - 60 minutes total exercise a day. 15 - 20 work intervals in minutes. PRN rest intervals in minutes. Functional Capacity Goal Sustained Metabolic Equivalent of a task (MET) goal of for minutes. Progression (METS) Increase by: METS every: sessions Angina with ex: No Resistance Training: Yes Weight (pounds): 10 Reps: 8-12 Hypertension: Yes Hypertension controlled with: Medication Resting 148/70 Peak Exercise BP 140/90 Meds see below Medications Scheduled Aspirin (Aspir 81), 1 TAB PO DAILY, (Reported) Atorvastatin Calcium (Lipitor), 1 TAB PO DAILY, (Reported) Bupropion HCl (Wellbutrin Xl), 150 MG PO QAM, (Reported) Ezetimibe (Zetia), 10 MG PO DAILY, (Reported) Losartan Potassium (Losartan Potassium), 100 MG PO DAILY, (Reported) Losartan Potassium (Cozaar), 1 TAB PO DAILY, (Reported) Metoprolol Tartrate (Metoprolol Tartrate), 12.5 MG PO BID, (Reported) Montelukast Sodium (Montelukast Sodium), 1 TAB PO DAILY, (Reported) Multivit-Min/Iron/Folic/Vit K1 (Centrum Chewables Adults Tab), 1 TAB PO DAILY, (Reported) Nitroglycerin (Nitroglycerin), 1 TAB SL ASDIRECTED, (Reported) Pantoprazole Sodium (Protonix), 40 MG PO DAILY, (Reported) Prazosin Hcl (Prazosin HCl), 1 CAP PO QHS, (Reported) Ticagrelor Base (Brilinta), 90 MG PO BID, (Reported) Scheduled PRN Acetaminophen (Acetaminophen), 650 MG PO Q4-6HP PRN for pain or fever, (Reported) Albuterol Sulfate (Ventolin Hfa), 2 PUFF INH Q4-6HP PRN for wheezing, (Reported) Intervention Resistance Training: Yes (see prior ITP for education) Education Goals Met: Yes (reached goal of mts) Target Goals Individual exercise Rx (1) BP 140/90 or 130/80 if DM or CKD (1) Aerobic active 30+min 5 days per week (1) Nutrition Date: Mar 29, 2019 Assessment: Followup/Discharge Stages of change: maintenance, relapse Diabetes Diabetes: No Weight Management Weight (lbs): 246.2 Height (inches): 74 BMI: 31.6 Weight goal: 225 Score: 61 Intervention Diet Class: Yes Education Goals Met: No (saw health information tech today, will try to reevalute what he is eating) Target goal LDL-C<100 if triglycerides are >200 Non-HDL-C should be <130 (1) LDL-C<70 for high risk patients (4) HbA1c<7% (1) BMI<25 Waist cir<40in M/<35in F (1) Education Date: Mar 29, 2019 Assessment: Followup/Discharge Knowledge Test Score: 9 Stages of change: action Family Support: Yes Tobacco use: No Education Goals Met: Yes Target Goals Complete cessation of tobacco use (1). Psychosocial Date: Mar 29, 2019 Assessment: Followup/Discharge Psych Test (Initial/Discharge) Tool Used: CESD Score: 16 Stages of change: maintenance Stress Management Class: Yes (just went through ptsd program) Education Goals Met: No (continues to progress toward goals) Target Goal Assess presence or absence of depression using a valid screening tool (1). Maximize coping skills (2). Positive support system (2). Provider Assessment Session Number: 27 Provider Assessment: No changes Madyson Ramos RN Mar 29, 2019 11:11
== END 2019-04-05 ==
LOC: M CR 10:25
PROVIDERS: ATTEND Internal Medicine Interventional Cardiology
DX: I21.4 Non-ST elevation (NSTEMI) myocardial infarction (principal)

== ENCOUNTER 2019-04-19 10:20 | Day surgery (SDC) | payer OTHER ==
[~2019-04-19] VITALS: Ht 188 cm; Wt 111.6 kg
[~2019-04-19 10:20] MED LIST changes: +NS 1,000 ML IV SCH
[2019-04-19] MEDS ORDERED: LIDOCAINE 2% INJ 100 MG/5 ML SDV (FOR ANES.) As Ordered ONE (11:09)
[2019-04-19] MEDS ORDERED: PROPOFOL 200 MG/20 ML VIAL As Ordered ONE ×2 (11:37→11:45)
--- NOTE | 2019-04-19 12:12 | ROOR ---
Patient Name: Domingo Ray Procedure Date: 04/19/2019 11:06 AM Date of : 1970 Age: 49 Room: [facility] Gender: Male Note Status: Finalized Procedure: Upper GI endoscopy Indications: Heartburn, Suspected gastro-esophageal reflux disease Providers: Ajay Way MD Referring MD: BRENDA FERRER MD Requesting Provider: Medicines: Monitored Anesthesia Care Complications: No immediate complications. Procedure: Pre-Anesthesia Assessment: - Prior to the procedure, a History and Physical was performed, and patient medications and allergies were reviewed. The patient is competent. The risks and benefits of the procedure and the sedation options and risks were discussed with the patient. All questions were answered and informed consent was obtained. Patient identification and proposed procedure were verified by the physician, the nurse and the anesthesiologist in the procedure room. Mental Status Examination: alert and oriented. Airway Examination: normal oropharyngeal airway and neck mobility. Respiratory Examination: clear to auscultation. CV Examination: normal. Prophylactic Antibiotics: The patient does not require prophylactic antibiotics. Prior Anticoagulants: The patient has taken no previous anticoagulant or antiplatelet agents. ASA Grade Assessment: II - A patient with mild systemic disease. After reviewing the risks and benefits, the patient was deemed in satisfactory condition to undergo the procedure. The anesthesia plan was to use monitored anesthesia care (MAC). Immediately prior to administration of medications, the patient was re-assessed for adequacy to receive sedatives. The heart rate, respiratory rate, oxygen saturations, blood pressure, adequacy of pulmonary ventilation, and response to care were monitored throughout the procedure. The physical status of the patient was re-assessed after the procedure. The Endoscope was introduced through the mouth, and advanced to the second part of duodenum. The upper GI endoscopy was accomplished without difficulty. The patient tolerated the procedure well. Findings: The examined esophagus was normal. The Z-line was irregular and was found 43 cm from the incisors. Scattered mild inflammation characterized by erythema, friability and granularity was found in the gastric body and in the gastric antrum. Biopsies were taken with a cold forceps for Helicobacter pylori testing. Verification of patient identification for the specimen was done by the physician and nurse using the patient's name, date and medical record number. Estimated blood loss was minimal. The duodenal bulb and second portion of the duodenum were normal. Impression: - Normal esophagus. - Z-line irregular, 43 cm from the incisors. - Gastritis. Biopsied. - Normal duodenal bulb and second portion of the duodenum. Recommendation: - Patient has a contact number available for emergencies. The signs and symptoms of potential delayed complications were discussed with the patient. Return to normal activities tomorrow. Written discharge instructions were provided to the patient. - High fiber diet. - Continue present medications. - Follow an antireflux regimen. - Await pathology results. - If Biopsy shows H. pylori will need therapy with antibiotic course.. - Telephone GI clinic for pathology results in 2 weeks. - Return to primary care physician. Ajay Way MD Ajay Way MD 04/19/2019 12:11:40 PM Electronically signed by Ajay Way MD Number of Addenda: 0 Note Initiated On: 04/19/2019 11:06 AM Estimated Blood Loss: Estimated blood loss was minimal.
--- NOTE | 2019-04-19 12:18 | ROOR ---
Patient Name: Domingo Ray Procedure Date: 04/19/2019 11:07 AM Date of : 1970 Age: 49 Room: [facility] Gender: Male Note Status: Finalized Procedure: Colonoscopy Indications: Heme positive stool Providers: Ajay Way MD Referring MD: BRENDA FERRER MD Requesting Provider: Medicines: Monitored Anesthesia Care Complications: No immediate complications. Procedure: Pre-Anesthesia Assessment: - Prior to the procedure, a History and Physical was performed, and patient medications and allergies were reviewed. The patient is competent. The risks and benefits of the procedure and the sedation options and risks were discussed with the patient. All questions were answered and informed consent was obtained. Patient identification and proposed procedure were verified by the physician, the nurse and the anesthesiologist in the procedure room. Mental Status Examination: alert and oriented. Airway Examination: normal oropharyngeal airway and neck mobility. Respiratory Examination: clear to auscultation. CV Examination: normal. Prophylactic Antibiotics: The patient does not require prophylactic antibiotics. Prior Anticoagulants: The patient has taken Brilinta, last dose was 5 days prior to procedure. ASA Grade Assessment: II - A patient with mild systemic disease. After reviewing the risks and benefits, the patient was deemed in satisfactory condition to undergo the procedure. The anesthesia plan was to use monitored anesthesia care (MAC). Immediately prior to administration of medications, the patient was re-assessed for adequacy to receive sedatives. The heart rate, respiratory rate, oxygen saturations, blood pressure, adequacy of pulmonary ventilation, and response to care were monitored throughout the procedure. The physical status of the patient was re-assessed after the procedure. The Colonoscope was introduced through the anus and advanced to the terminal ileum, with identification of the appendiceal orifice and IC valve. The colonoscopy was performed without difficulty. The patient tolerated the procedure well. The quality of the bowel preparation was good. The terminal ileum, ileocecal valve, appendiceal orifice, and rectum were photographed. Scope insertion time was 3 minutes. Scope withdrawal time was 12 minutes. The total duration of the procedure was 15 minutes. Findings: The perianal and digital rectal examinations were normal. The terminal ileum appeared normal. A 3 mm polyp was found in the transverse colon. The polyp was sessile. The polyp was removed with a cold biopsy forceps. Resection and retrieval were complete. Verification of patient identification for the specimen was done by the physician and nurse using the patient's name, date and medical record number. Estimated blood loss was minimal. Two sessile polyps were found in the rectum. The polyps were diminutive in size. These polyps were removed with a cold biopsy forceps. Resection and retrieval were complete. A few small and large-mouthed diverticula were found from sigmoid to ascending colon. There was no evidence of diverticular bleeding. Non-bleeding external and internal hemorrhoids were found during retroflexion. The hemorrhoids were medium-sized. Impression: - The examined portion of the ileum was normal. - One 3 mm polyp in the transverse colon, removed with a cold biopsy forceps. Resected and retrieved. - Two diminutive polyps in the rectum, removed with a cold biopsy forceps. Resected and retrieved. - Mild diverticulosis from sigmoid to ascending colon. There was no evidence of diverticular bleeding. - Non-bleeding external and internal hemorrhoids. Recommendation: - Patient has a contact number available for emergencies. The signs and symptoms of potential delayed complications were discussed with the patient. Return to normal activities tomorrow. Written discharge instructions were provided to the patient. - High fiber diet. - Continue present medications. - Use fiber, for example Citrucel, Fibercon, Konsyl or Metamucil. - Resume Brinlinta at prior dose today. Refer to primary physician for further adjustment of therapy. - Repeat colonoscopy in 5 years for surveillance based on pathology results. - Telephone GI clinic for pathology results in 2 weeks. - Return to primary care physician. Ajay Way MD Ajay Way MD 04/19/2019 12:18:09 PM Electronically signed by Ajay Way MD Number of Addenda: 0 Note Initiated On: 04/19/2019 11:07 AM Estimated Blood Loss: Estimated blood loss was minimal.
[2019-04-19 12:36] VITALS: BP 142/74
== END 2019-04-19 12:36 | disposition home or self-care (01) ==
LOC: M OPP 10:20
PROVIDERS: ATTEND Internal Medicine Gastroenterology
DX: K64.0 First degree hemorrhoids (principal); D12.2 Benign neoplasm of ascending colon; K62.1 Rectal polyp; R19.5 Other fecal abnormalities; K57.30 Diverticulosis of large intestine without perforation or abscess without bleeding; K22.8 Other specified diseases of esophagus; K29.70 Gastritis, unspecified, without bleeding; R12 Heartburn; I21.9 Acute myocardial infarction, unspecified; G57.30 Lesion of lateral popliteal nerve, unspecified lower limb; Z79.899 Other long term (current) drug therapy; Z95.5 Presence of coronary angioplasty implant and graft